=== PATIENT | male | born 1955 | race Caucasian/White ===

== ENCOUNTER 2018-09-27 07:21 | Day surgery (SDC) | payer BC ==
[~2018-09-27 07:21] MED LIST: Lactated Ringers 1,000 ML IV SCH; Sodium Chloride 0.9% 10 ML Syringe FLUSH PRN
[2018-09-27] MEDS ORDERED: Midazolam 1 MG/ML 2 ML SDV ONE (08:50)
[2018-09-27] MEDS ORDERED: Propofol 200 MG/20 ML SDV ONE (08:50)
[2018-09-27] MEDS ORDERED: fentaNYL 100 MCG/2 ML SDV ONE (08:50)
--- NOTE | 2018-09-27 10:51 | OR ---
PREOPERATIVE DIAGNOSIS: History of polyps. POSTOPERATIVE DIAGNOSIS: Sigmoid diverticulosis, otherwise normal exam. PROCEDURE PROPOSED: Total flexible colonoscopy. PROCEDURE DONE: Total flexible colonoscopy. INDICATION: This is a 62-year-old gentleman, who comes in for colonic surveillance due to history of polyps with last examination about 5 years ago. He denies any symptomatology and he has a negative family history for any colon cancer. TECHNIQUE: The patient was brought to the endoscopy suite, placed in left lateral decubitus position. He was sedated per [employer] with propofol. The flexible video colonoscope was then passed transanally and under visualization advanced to the cecum. Examination revealed normal ascending, transverse, descending colon. The sigmoid colon revealed moderate diverticulosis and the rectum was normal. There was no evidence of any polyps or colitis or other abnormalities, and the scope was then withdrawn. The patient tolerated the procedure well. FINAL IMPRESSION: 1. Sigmoid diverticulosis, otherwise normal exam. 2. History of prior polyps. PLAN: I feel he should continue with colonic surveillance every 5 years hereafter. SCM: 09/27/2018 09:42:48 MODL: 09/27/2018 10:41:54 /[id number]
== END 2018-09-27 10:44 | disposition home or self-care (01) ==
LOC: VM.SDS 07:21
PROVIDERS: ATTEND Surgery
DX: Z12.11 Encounter for screening for malignant neoplasm of colon (principal); K57.30 Diverticulosis of large intestine without perforation or abscess without bleeding; Z86.010 Personal history of colon polyps; I10 Essential (primary) hypertension; E78.5 Hyperlipidemia, unspecified; E78.00 Pure hypercholesterolemia, unspecified; N40.0 Benign prostatic hyperplasia without lower urinary tract symptoms; Z79.82 Long term (current) use of aspirin; Z79.899 Other long term (current) drug therapy
CPT/HCPCS: 45378; J2250; J2704; J3010; J7120

== ENCOUNTER 2024-03-31 09:44 | Day surgery (SDC) | payer MEDICARE, BC ==
[2024-03-31] MEDS: Lactated Ringers 1,000 ML IV SCH (10:10)
[2024-03-31] MEDS ORDERED: Propofol 200 MG/20 ML SDV ONE ×2 (10:14→10:15)
[2024-03-31] MEDS ORDERED: fentaNYL 100 MCG/2 ML SDV ONE (10:15)
== END 2024-03-31 13:38 | disposition home or self-care (01) ==
LOC: VM.SDS 09:44
PROVIDERS: ATTEND Family Medicine
DX: Z12.11 Encounter for screening for malignant neoplasm of colon (principal); D12.0 Benign neoplasm of cecum; D12.6 Benign neoplasm of colon, unspecified; K57.30 Diverticulosis of large intestine without perforation or abscess without bleeding; I10 Essential (primary) hypertension; E78.00 Pure hypercholesterolemia, unspecified; N40.0 Benign prostatic hyperplasia without lower urinary tract symptoms; Z79.899 Other long term (current) drug therapy
CPT/HCPCS: 00811; J2704; J3010; J7120